=== PATIENT | male | born 1945 | race Caucasian/White ===

== ENCOUNTER 2017-10-22 11:50 | Inpatient (IN) | payer MEDICARE, BC ==
[~2017-10-22] VITALS: Ht 175.3 cm; Wt 99.5 kg
--- NOTE | ~2017-10-22 | PROC ---
[facility] [address] [place] [address] PROCEDURE REPORT Name: ANDRES CHAMPION Room: [address] IN M.R.#: [id number] Admission: 10/22/17 Attend Phys: Tomi York MD, F Discharge: 10/25/17 Date of : 47 Report #: [id number] THIS REPORT FOR: //name// For GI report, please see the Provation report in Perceptive 7 content. By: [id number] Records Staff WINSTON /GIA
[~2017-10-22 11:50] MED LIST: APAP650 PO; ASPIR-LOW81 MG PO; ATORVASTATIN CA40 MG PO; CENTRUM SILVER1 EAC2 PO; FISH OIL 1,001000 M2 PO; FOLIC ACID1 MG PO; KEFLEX500 M1 PO; NITROGLYCERIN0.4 MG SUBLING; PLAVIX 75 MG TA75 M1 PO; TERAZOSIN HCL10 MG PO; TUMS PO; WELLBUTRIN 100100 MG PO
[2017-10-22 11:53] VITALS: BP 111/52
[2017-10-22 12:26] LABS: ABSOLUTE EOSINOPHILS 0.1 thou/uL (0.0-0.7); ABSOLUTE LYMPHOCYTES 1.1 thou/uL (0.8-5.3); ABSOLUTE MONOCYTES 0.7 thou/uL (0.0-1.2); ABSOLUTE NEUTROPHILS 2.4 thou/uL (1.6-8.1); BASOPHILS 0.9 %; EOSINOPHILS 1.9 %; HEMATOCRIT 23.4 % (42.0-52.0); HEMOGLOBIN 7.2 gm/dL (14.0-18.0); MCH 23.9 pg (26.0-34.0); MCV 77.1 fL (80.0-100.0); MONOCYTES 15.1 %; MPV 7.2 fl. (7.2-11.1); NUCLEATED RBCS 0 /100WBC; PLATELET COUNT* 278 thou/uL (150-400); POLYS 56.1 %; RBC 3.03 mil/uL (4.50-6.00); RDW-CV 17.9 % (10.5-14.5); WBC 4.3 thou/uL (4.0-11.0)
[2017-10-22 12:36] LABS: ANION GAP 7 mmol/L (7-16); BUN 18 mg/dL (7-18); CALCIUM 8.7 mg/dL (8.5-10.1); CHLORIDE 101 mmol/L (98-107); CO2 28 mmol/L (21-32); GLUCOSE 121 mg/dL (70-99); POTASSIUM 4.2 mmol/L (3.5-5.1); SODIUM 136 mmol/L (136-145)
[2017-10-22 12:37] LABS: APTT 27.3 Seconds (25.0-31.3); INR 1.1; PROTIME 10.8 Seconds (9.20-11.50)
--- NOTE | 2017-10-22 12:46 | NUR ---
PT GOING TO [employer] TO FINISH SCAN, DR SERRANO APPROVED
[2017-10-22 12:47] LABS: ALBUMIN 3.5 g/dL (3.4-5.0); ALKALINE PHOSPHATASE 89 U/L (46-116); NT-PRO BRAIN NAT PEPTIDE 98 pg/mL (<300); SGOT 18 U/L (15-37); SGPT 22 U/L (30-65); TOTAL BILIRUBIN 0.3 mg/dL (<0.1-1.0); TOTAL PROTEIN 7.8 g/dL (6.4-8.2); TROPONIN-I LEVEL <0.06 ng/mL (<0.06)
--- NOTE | 2017-10-22 14:00 | EKG ---
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
[2017-10-22 14:15] VITALS: BP 123/65
[2017-10-22 14:45] VITALS: BP 124/64
--- NOTE | 2017-10-22 15:30 | NUR ---
PT ARRIVED TO UNIT VIA GURNEY AND ED NURSING STAFF. PT ABLE TO TRANSFER FROM GURNEY ONTO BED PER SELF. PT HAS CARDIZEN GTTS INFUSING PER ORDER. PT A & O X4, ABLE TO COMMUNICATE NEEDS TO STAFF. AFIB ON MONITOR. VS WNL. GREG PRESENT. NEEDED ITEMS AND CALL LIGHT WITHIN REACH. PT AGREEABLE TO CARE PLAN.
[2017-10-22 16:00] VITALS: BP 119/55
[2017-10-22 20:00] VITALS: BP 120/48
[2017-10-23] VITALS (8 sets, daily range): BP systolic 104–123; BP diastolic 44–57
--- NOTE | 2017-10-23 05:21 | NUR ---
ASSUMED CARE OF PATIENT AT 1900 THE PATIENT IN SR ON THE MONITOR O2 SAT MAINTAINED ON 2 L NC CONTINUES TO BE UP WITH STANDBY ASSIST TO THE BATHROOM THE ROUTINE REGIMEN CONTINUES TO BE EFFECTIVE FOR SX MANAGEMENT PROGRESS CONTINUES TOWARDS GOALS MAVIS MUÑIZ DC'Lucius AT 0035 SAFETY INTERVENTIONS CONTINUE BED LOWERED WHEELS LOCKED CALL LIGHT IN REACH SIDE RAILS UP REPORT TO BE GIVEN TO TERESA ROWLEY
[2017-10-23 05:47] LABS: ALBUMIN 3.3 g/dL (3.4-5.0); CALCIUM 8.8 mg/dL (8.5-10.1); POTASSIUM 4.5 mmol/L (3.5-5.1); TOTAL BILIRUBIN 0.3 mg/dL (<0.1-1.0); TOTAL PROTEIN 7.5 g/dL (6.4-8.2)
[2017-10-23 05:55] LABS: % SATURATION 4 % (20-39); IRON 14 ug/dL (50-175)
[2017-10-23 05:56] LABS: HEMOGLOBIN 6.9 gm/dL (14.0-18.0)
--- NOTE | 2017-10-23 12:39 | EKG ---
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 Rn: [facility] : 1945 Requested By: Tomi York Order Number: [id number] MD: Vincent Nagy Measurements Intervals [place] Rate: 63 P: 70 SD: 170 QRS: -7 QRSD: 102 T: 40 QT: 433 QTc: 444 Interpretive Statements Sinus rhythm Abnormal R-wave progression, early transition Compared to ECG 10/22/2017 11:51:14 Atrial fibrillation no longer present Electronically Signed On 10-23-2017 12:38:54 CDT by Vincent Nagy [email or web address] <ELECTRONICALLY SIGNED> By: Vincent Nagy MD, [facility] 10/23/17 1238 0649 0649 Vincent Nagy MD, [facility] /EPI
[2017-10-23 18:20] LABS: HEMATOCRIT 23.9 % (42.0-52.0); HEMOGLOBIN 7.8 gm/dL (14.0-18.0)
--- NOTE | 2017-10-23 18:29 | NUR ---
ASSUMED CARE OF PT AT 0720. PT CONTINUES TO BE A&O X4 CALM AND COOPERATIVE. PT HAS HAD NO C/O PAIN OR DISTRESS TODAY AND HE HAS BEEN TRACING NSR ON THE MONITOR. PT VSS ON ROOM AIR, AND PT HAS BEEN UP AD SANDRO IN HIS ROOM AND TO THE BATHROOM. PT RECIEVED 1 UNIT OF RBC TODAY FOR A LOW HGB. PT HAD NO ADVERSE REACTIONS TO THE TRANSFUSION. PT STATES HE FEELS 'REFRESHED' PT HAS HAD A GOOD APPETITE AND HAS ATE GREATER THAN 75% OF ALL MEALS TODAY. PT HAS HAD HIS , CHILDREN, AND GRANDCHILDREN AT THE BEDSIDE TODAY. PT CURRENTLY RESTING IN BED WITH HOB ELEVATED. NURSING WILL CONTINUE TO MONITOR.
[2017-10-24 04:00] VITALS: BP 115/58
[2017-10-24 04:31] LABS: HEMATOCRIT 24.7 % (42.0-52.0); HEMOGLOBIN 7.7 gm/dL (14.0-18.0); MCHC 31.2 g/dL (28.0-37.0); MPV 7.5 fl. (7.2-11.1); RBC 3.21 mil/uL (4.50-6.00); RDW-CV 17.3 % (10.5-14.5); WBC 5.8 thou/uL (4.0-11.0)
--- NOTE | 2017-10-24 05:55 | NUR ---
PATIENT PROGRESSING TOWARDS GOALS OF DISCHARGE ASSUMED CARE OF PATIENT AT 1900 THE PATIENT REMAINS SR ON THE MONITOR O2 SAT MAINTAINED ON RA CONTINUES TO BE UP WITH ASSIST OF 1 STANDBY ROUTINE REGIMEN CONTINUES TO BE EFFECTIVE FOR SX MANAGEMENT IN AM NOTED BRADYCARDIAC LOW 50'S HELD AM DOSE OF S[place] PENDING CONSULTATION WITH CARDIOLOGY SAFETY INTERVENTIONS CONTINUE BED LOWERED WHEELS LOCKED CALL LIGHT IN REACH SIDE RAILS UP REPORT TO BE GIVEN TO ONCOMING AMRIK
[2017-10-24 08:00] VITALS: BP 114/54
[2017-10-24] MEDS ORDERED: SORINE 80 MG TA80 M1 PO (09:13)
[2017-10-24 09:20] VITALS: BP 108/53
[2017-10-24 11:00] VITALS: BP 117/61
[2017-10-24 17:00] VITALS: BP 121/60
--- NOTE | 2017-10-24 18:33 | NUR ---
ASSUMED CARE OF PT AT 0730. PT CONTINUES TO BE A&O X4, VSS ON ROOM AIR. PT HAS HAD NO C/O PAIN OR DISTRESS TODAY AND CONTINUES TO TRACE NSR ON THE MONITOR. PT UP AD SANDRO IN HIS ROOM WITH A STEADY GAIT. PT STARTED BOWEL PREP THIS AFTERNOON AND HAS HAD MULTIPLE BOWEL MOVEMENTS. PT ON FULL LIQUID DIET AND WILL BE KEPT NPO STARTING AT MIDNIGHT. PT CURRENTLY RESING IN BE WITH NO APPARENT S/S OF PAIN OR DISTRESS AND FAMILY AT BEDSIDE. NURSING WILL CONTINUE TO MONITOR.
[2017-10-24 20:00] VITALS: BP 130/40
[2017-10-25] VITALS: BP 111/55
[2017-10-25 04:00] VITALS: BP 110/63
--- NOTE | 2017-10-25 04:42 | NUR ---
ASSUMED PT CARE AT 1930, PT IS A&OX4, TRACING NSR/SB ON THE MONITOR, ON RA SATTING MID TO HIGH 90'S PT IS UP AD SANDRO IN HIS ROOM AND STABLE ON MHIS FEET. PT IS NPO AT THIS TIME FOR PENDING EGD AND COLONOSCOPY. PT DRANK MOST OF BOWEL PREP LAST NIGHT WITHOUT ISSUE. PT DENIES ANY PAIN OR NEEDS AT THIS TIME. BED IN LOW POSITION, CALL LIGHT IN REACH, HOURLY ROUNDING COMPLETED FOR PT SAFETY.
[2017-10-25 04:45] LABS: ABSOLUTE EOSINOPHILS 0.2 thou/uL (0.0-0.7); ABSOLUTE LYMPHOCYTES 1.9 thou/uL (0.8-5.3); ABSOLUTE MONOCYTES 0.9 thou/uL (0.0-1.2); ABSOLUTE NEUTROPHILS 2.5 thou/uL (1.6-8.1); BASOPHILS 0.7 %; HEMATOCRIT 23.7 % (42.0-52.0); HEMOGLOBIN 7.6 gm/dL (14.0-18.0); LYMPHOCYTES 34.6 %; MCH 24.3 pg (26.0-34.0); MONOCYTES 16.1 %; MPV 7.7 fl. (7.2-11.1); NUCLEATED RBCS 0 /100WBC; PLATELET COUNT* 262 thou/uL (150-400); POLYS 45.6 %; RBC 3.11 mil/uL (4.50-6.00); RDW-CV 17.6 % (10.5-14.5); WBC 5.4 thou/uL (4.0-11.0)
[2017-10-25 04:58] LABS: ALBUMIN 3.4 g/dL (3.4-5.0); CALCIUM 8.4 mg/dL (8.5-10.1); CREATININE 0.9 mg/dL (0.6-1.3); POTASSIUM 3.9 mmol/L (3.5-5.1); TOTAL BILIRUBIN 0.4 mg/dL (<0.1-1.0)
[2017-10-25 08:05] VITALS: BP 111/65
[2017-10-25 09:16] VITALS: BP 111/65
[2017-10-25 12:31] VITALS: BP 136/63
--- NOTE | 2017-10-25 12:44 | NUR ---
CM ASSESSMENT: Pt known to this CM from previous hospital stay. A&O. Resides at home with . Independent with ADLs. No DME. No hx of HH or SNF. Scheduled to have EGD/colon today, possible dc afterwards. No needs anticipated.
--- NOTE | 2017-10-25 15:07 | CON ---
[address] [address] CONSULTATION Name: AKIRAANDRES G Room: [address] IN .Eva.#: [id number] Admission: 10/22/17 Attend Phys: Tomi York MD, F Discharge: Date of : 47 Report #: [id number] THIS REPORT FOR: //name// CC: Tomi Mejias DATE OF SERVICE: 10/24/2017 REQUESTING PHYSICIAN: Dr. Tomi York. REASON FOR CONSULT: Anemia. HISTORY OF PRESENT ILLNESS: This is a 72-year-old male with history of myocardial infarction 6 months ago, who has been on baby aspirin and anticoagulation therapy. The patient reports that since his myocardial infarction he has not been feeling well. He also reports that he has been more constipated and he strains a lot to have a bowel movement. The patient reports that his last colonoscopy was 10 years ago and he has gastroesophageal reflux disease for which he does not take any medication. He denies any hematochezia, melena or hematemesis. PAST MEDICAL HISTORY: Significant for history of hypertension, coronary artery disease status post myocardial infarction, depression, hyperlipidemia, new onset AFib. ALLERGIES: No known drug allergy. MEDICATIONS: Please refer to hospital MAR. SOCIAL HISTORY: The patient is and lives at home. He has history of tobaccoism, but no longer smokes. He denies alcohol use. FAMILY HISTORY: Negative for GI malignancy. PHYSICAL EXAMINATION: VITAL SIGNS: Reveals blood pressure of 108/53, respirations 17, pulse 65, temperature 97.5. LUNGS: Clear. CARDIOVASCULAR: Irregular, but normal rate. ABDOMEN: Soft, nontender, nondistended. Bowel sounds are positive. NEUROLOGIC: The patient is alert, oriented x 3. LABORATORY DATA: Reveal sodium of 139, potassium 4.5, BUN is 21, [place] [address] CONSULTATION Name: ANDRES CHAMPION Room: [address]#: [id number] Admission: 10/22/17 Attend Phys: Tomi York MD, F Discharge: Date of : 47 Report #: [id number] 1.0. Liver function tests all within normal limits. WBC is 5.8 with hemoglobin of 7.7 and platelet of 262. ASSESSMENT AND PLAN: The patient with new onset atrial fibrillation, who has had a cardiac event 6 months ago and has been on Plavix and aspirin. He also reports that his last colonoscopy was 10 years ago. He is severely anemic. We will go ahead and perform an upper and lower endoscopy to further investigate his anemia. The patient also complains of gastroesophageal reflux disease symptoms for which he is not on any antireflux meds. We will consider adding this after endoscopic evaluation. Meanwhile, we will continue monitoring his H and H and transfuse if he drops below 7. <ELECTRONICALLY SIGNED> By: Tanisha Celeste MD 10/25/17 1507 1301 [id number] Celeste MD /nt
--- NOTE | 2017-10-25 17:50 | H ---
[address] [address] HISTORY AND PHYSICAL Name: ANDRES CHAMPION Room: [address] IN M.Eva.#: [id number] Admission: 10/22/17 Attend Phys: Tomi York MD, F Discharge: Date of : 47 Report #: [id number] THIS REPORT FOR: //name// CC: [facility]i Watson [facility] DATE OF SERVICE: 10/22/2017 HISTORY OF PRESENT ILLNESS: The patient is a 72-year-old white male who came to the Emergency Room with a narrow complex tachycardia. The patient has no history of heart disease. He actually presented to [facility] on 04/21/2017. He complained of lightheadedness. He went to see his primary care physician, was noted to be bradycardic. He felt fatigue. He was sent over to the Emergency Room. The patient had a heart rate in the 40s. The patient had noticed some fatigue and not feeling well. He denies any significant chest pain or shortness of breath. He was noted to have an abnormal troponin. He underwent a heart catheterization done, an ejection fraction of 55%. He was found to have diffuse coronary artery disease with a high grade stenosis of the mid circumflex and right coronary artery. I then placed two drug-eluting stents in the circumflex with one drug-eluting stent in the right coronary artery. He was started on aspirin and clopidogrel. His post-MT course was uncomplicated. Recently, he has been going to the gym frequently. Recently, he noticed some burning in his chest when he exercised on the treadmill. It is not related to food. He has had no bleeding. He did note some exertional dyspnea, but no syncope or edema. He complains of fatigue. I saw him in the office last week. Recommend a nuclear stress test today. When he showed up today, he was given Lexiscan. He then went into a narrow complex tachycardia that was regular at 140 beats per minute. He was given adenosine 12 mg, and it slowed transiently, but then returned. He was sent over to the Emergency Room. When he arrived in the Emergency Room, he was actually noted to be in atrial fibrillation. He was started on IV diltiazem. He is being admitted at this time for further evaluation and treatment. PAST MEDICAL HISTORY: Otherwise is significant for the following: He had a history of hypertension, depression. MEDICATIONS: Consists of aspirin, Lipitor, Wellbutrin, Plavix, Hytrin. ALLERGIES: He has no known drug allergies. FAMILY HISTORY: Not obtained. SOCIAL HISTORY: He is . He and his live in [place], [place]. Used to smoke, does not use alcohol. [place] [address] HISTORY AND PHYSICAL Name: AKIRATERELatonya Byrne Room: [address] IN [facility]#: [id number] Admission: 10/22/17 Attend Phys: Tomi York MD, F Discharge: Date of : 47 Report #: [id number] REVIEW OF SYSTEMS: He has had no history of stroke, asthma, peptic ulcer disease, liver disease, kidney disease. He is hard of hearing. PHYSICAL EXAMINATION: GENERAL: Revealed an elderly male who appeared in no distress. VITAL SIGNS: His blood pressure 110/60, pulse was initially 130. He was afebrile. HEENT: He is anicteric. Conjunctivae pink. Mucous membranes moist. NECK: Supple. CHEST: Clear to auscultation. CARDIOVASCULAR: Irregular rhythm. ABDOMEN: Soft. EXTREMITIES: No edema. SKIN: Warm, dry. NEUROLOGIC: Nonfocal. DIAGNOSTIC DATA: His initial ECG this morning showed sinus rhythm, early repolarization. He then went into a narrow complex tachycardia after Lexiscan, 140 beats per minute, suggestive of AV node reentry tachycardia. Current ECG appears to show atrial fibrillation. His workup in the Emergency Room today, he had portable chest x-ray, showed normal heart size, clear lung ram. He had a carotid Doppler study last April that showed a carotid stenosis, although he underwent a CTA that showed plaque in the left internal carotid artery at 55%. Right carotid artery had no significant stenosis. LABORATORY DATA: Today sodium 136, BUN 18, creatinine 1. His TSH last April was 2.3. White blood cell count 4.3, hemoglobin is 7.2 today and hematocrit 23.4, MCV 77, RDW 17.9. IMPRESSION AND RECOMMENDATIONS: 1. Atrial tachycardia and atrial fibrillation. The patient has had palpitations in the past. At this time, I would start sotalol. If he fails to convert, he may require cardioversion. I would not recommend anticoagulation because of his anemia. 2. Anemia. No history of bleeding. The patient had drug-eluting stents placed 6 months ago. At this time, I would stop the Plavix, but continue aspirin. Consider GI workup. 3. Hypertension. The patient has not been on medications in the past 4. Prostatism. 5. Moderate carotid stenosis. <ELECTRONICALLY SIGNED> By: Tomi York MD, [facility] 10/25/17 1750 1252 1351Dloisd Jacky York MD, FACC /nt
--- NOTE | 2017-10-25 18:03 | NUR ---
PT DISCHARGED HOME WITH VIA PRIVATE VEHICLE. IV AND FRONT WORKER REMOVED PRIOR TO DISCHARGE. PT AND VERBALIZED UNDERSTANDING OF DISCHARGE INSTRUCTIONS THAT INCLUDED MEDICATION MANAGEMENT AND FOLLOW UP CARE. PT TOOK ALL PRESCRIPTIONS AND ALL PERSONAL BELONGINGS AT TIME OF DISCHARGE. PT VSS ON ROOM AIR, SKIN W/D/I, AND NO C/O PAIN OR DISTRESS AT TIME OF DISCHARGE.
--- NOTE | 2017-10-26 13:23 | S ---
[place] [address] SURGICAL PATH RPT PROCEDURE Name: ANDRES TITUS Room: [address] IN M.R.#: [id number] Admission: 10/22/17 Date of : 47 Discharge: 10/25/17 Report #: [id number] Path Case #: [id number] PATHOLOGY REPORT COLLECTION DATE: 10/25/2017 RECEIVED DATE: 10/25/2017 SUBMITTING PHYS: Dr. Tanisha Celeste OTHER PHYS: Dr. Tomi Mejias, [facility] SPECIMEN(S) RECEIVED: A.Duodenal bulb * * * * * * * * * * * * FINAL DIAGNOSIS: Duodenal bulb: - Mild, nonspecific active duodenitis, negative for granulomas, viral inclusions and dysplasia. (see comment) (JOHN:dayanara; 10/26/2017) COMMENT: The biopsy shows benign duodenal mucosa including prominent Franklin's glands, with the described inflammation and there is also villous flattening and an increase of lymphoplasmacytic infiltrate with mild intraepithelial lymphocytosis, findings which can be attributed to active duodenitis at this site, although they can also be seen with celiac disease, which should be considered in the clinical differential. (JOHN:dayanara; 10/26/2017) PATHOLOGIST: Jose Alicea M.D. REPORT ELECTRONICALLY SIGNED BY: Jose Alicea M.D. DATE/TIME: 10/26/2017 13:22 * * * * * * * * * * * * GROSS PATHOLOGY: Received in formalin labeled "Andres Titus, duodenal bulb biopsy for duodenitis," is a segment of phelan soft tissue measuring 0.3 cm in maximum dimension. The specimen is submitted entirely in cassette A1. (TSD; 10/25/2017) CLINICAL HISTORY: None provided INITIAL CPT CODE(S): A; [address] [place] [address] SURGICAL PATH RPT PROCEDURE Name: ANDRES TITUS Room: [address] IN [facility].#: [id number] Admission: 10/22/17 Date of : 47 Discharge: 10/25/17 Report #: [id number] Path Case #: [id number] Professional services performed by [facility] at [facility], [address] [place] [id number]. Technical services performed by [facility] at [address] [place] [address], [facility] [address], [place] [address]. [facility] [address] [place] [address] PHONE: [phone] DIRECTOR: Javi Monte M.D. * * * END OF REPORT * * *
--- NOTE | 2017-10-27 13:04 | D ---
[address] [address] DISCHARGE SUMMARY Name: ANDRES CHAMPION Room: [address] IN .R.#: [id number] Admission: 10/22/17 Attend Phys: Tomi York MD, F Discharge: 10/25/17 Date of : 47 Report #: [id number] THIS REPORT FOR: //name// CC: Tomi Watson DO [facility] DATE OF SERVICE: 10/25/2017 DISCHARGE DIAGNOSES: 1. Atrial tachycardia. 2. Iron deficiency anemia. 3. Hypertension. 4. Prostatism. 5. Coronary artery disease. CONSULTANTS: Dr. Tanisha Celeste, Gastroenterology. PROCEDURES: 1. Upper endoscopy. 2. Colonoscopy HISTORY OF PRESENT ILLNESS: The patient is a 72-year-old white male who was admitted when he was found to be in a narrow complex tachycardia. The patient presented in 04/2017 with lightheadedness and fatigue. He was noted to be bradycardic and had an elevated troponin. I performed a cardiac catheterization in 04/2017 that showed an ejection fraction of 55%. He was found to have diffuse coronary artery disease with high grade stenosis of mid circumflex and right coronary artery. I then placed two drug-eluting stents in the circumflex and one drug-eluting stent in the right coronary artery. He was started on aspirin and clopidogrel. Recently, he noticed with exertion he had some burning in his chest. It is not related to food. He has had no bleeding. He did note some exertional dyspnea, but no syncope. He complained of fatigue. I saw him in the office, recommend a nuclear stress test. When he showed up for the stress test, he was given Lexiscan. He then developed a narrow complex tachycardia at 140 beats per minute consistent with atrial tachycardia. He was given adenosine 12 mg intravenously in the treadmill lab suite and it slowed transiently, but then returned. He was referred to the Emergency Room. When he arrived in the Emergency Room, he was found to be in atrial fibrillation. He is started on IV diltiazem and admitted. PAST MEDICAL HISTORY: Significant for hypertension and depression. MEDICATIONS: On admission included aspirin, Lipitor, Wellbutrin, Plavix, [place] [address] DISCHARGE SUMMARY Name: ANDRES CHAMPION Room: [address]#: [id number] Admission: 10/22/17 Attend Phys: Tomi York MD, F Discharge: 10/25/17 Date of : 47 Report #: [id number] Hytrin. ALLERGIES: No known drug allergies. PHYSICAL EXAMINATION: VITAL SIGNS: Blood pressure 110/60, pulse was initially 130. CHEST: Clear to auscultation. CARDIAC: Irregular ABDOMEN: Soft. EXTREMITIES: Had no edema. LABORATORY DATA: Initial ECG showed a sinus rhythm with early repolarization. He then went into a narrow complex tachycardia at 140 beats per minute, suggestive of AV node reentry tachycardia. Subsequent ECG showed atrial fibrillation. Workup in the Emergency Room, portable chest x-ray, normal heart size, clear lung ram. Sodium 136, creatinine 1.0. Hemoglobin is only 7.2. HOSPITAL COURSE: The patient was admitted to a monitored bed. He was started on IV diltiazem. He was felt to have an atrial arrhythmia, and he was started on sotalol. He then converted to sinus rhythm, was taken off the IV diltiazem. He was noted to have evidence of iron deficiency anemia, and I had him seen by Dr. Celeste of the GI Service. On the day of discharge, he underwent upper endoscopy showed esophagitis, small hiatal hernia, but no bleeding. Colonoscopy showed diverticulosis, no bleeding. There were hemorrhoids. The plan is discharge the patient on iron supplements and perform a video capsule endoscopy as an outpatient. At time of discharge, the patient was ambulating and was in sinus rhythm. His nuclear stress test was performed on admission, read by Dr. Nagy, showed normal perfusion with no reversible defects. He felt that his chest pain is probably due to his anemia. At time of discharge, he had a blood pressure 130/60, his pulse is 60. He is afebrile. He was discharged on aspirin 81 mg a day, Plavix 75 mg a day, Lipitor, Wellbutrin, Hytrin and sotalol 80 mg twice day. He was discharged to return to the care of Dr. Watson for routine medical care. He continues to see Dr. Celeste in the GI Clinic for his iron deficiency anemia. At time of discharge, his lab work included potassium 3.9, glucose 89. Liver function studies were normal. His cholesterol was not obtained. TSH was 2.3 last April. His percent saturation of iron was only 4%, ferritin was 12. At time of discharge, he had a hemoglobin 7.6, hematocrit 23.7. The results of the hospitalization were discussed with the patient. It was felt that he had developed an iron deficiency anemia starting Plavix. I will consider discontinuing aspirin at this time and continue only Plavix. He is felt to have a good prognosis from cardiac standpoint. The cause of iron deficiency anemia was still unclear. He is scheduled to see my nurse practitioner in 1 week, and I plan to see him in Cardiology Clinic in 8 weeks. I would continue sotalol indefinitely to prevent recurrent atrial arrhythmias. I did recommend he gradually start an exercise program and continue the iron [facility] [address] [place] [address] DISCHARGE SUMMARY Name: ANDRES CHAMPION Room: [address] IN [facility].#: [id number] Admission: 10/22/17 Attend Phys: Tomi York MD, F Discharge: 10/25/17 Date of : 47 Report #: [id number] supplements. He will need followup hemoglobin and hematocrit after diagnosing his anemia. <ELECTRONICALLY SIGNED> By: Tomi York MD, FACC 10/27/17 1304 0836 [id number] Jacky York MD, FACC /nt
== END 2017-10-25 17:50 | disposition home or self-care (01) | DRG 384 ==
LOC: M.ERS 11:50 → M.2W 13:00 → M.TBA-ER 13:00 → M.2W 14:06
PROVIDERS: Internal Medicine Cardiovascular Disease; Internal Medicine Gastroenterology; Personal Emergency Response Attendant; ADMIT Internal Medicine Cardiovascular Disease
PROC: 30233N1 Transfusion of Nonautologous Red Blood Cells into Peripheral Vein, Percutaneous Approach (ICD-10-PCS; principal; 2017-10-23)
PROC: 0DB98ZX Excision of Duodenum, Via Natural or Artificial Opening Endoscopic, Diagnostic (ICD-10-PCS; 2017-10-25)
PROC: 0DJD8ZZ Inspection of Lower Intestinal Tract, Via Natural or Artificial Opening Endoscopic (ICD-10-PCS; 2017-10-25)
DX: K26.9 Duodenal ulcer, unspecified as acute or chronic, without hemorrhage or perforation (principal); D62 Acute posthemorrhagic anemia; I48.91 Unspecified atrial fibrillation; K57.30 Diverticulosis of large intestine without perforation or abscess without bleeding; K44.9 Diaphragmatic hernia without obstruction or gangrene; I10 Essential (primary) hypertension; F32.9 Major depressive disorder, single episode, unspecified; I25.10 Atherosclerotic heart disease of native coronary artery without angina pectoris; E78.5 Hyperlipidemia, unspecified; D50.9 Iron deficiency anemia, unspecified; N40.0 Benign prostatic hyperplasia without lower urinary tract symptoms; I65.29 Occlusion and stenosis of unspecified carotid artery; K21.0 Gastro-esophageal reflux disease with esophagitis; K64.8 Other hemorrhoids; I25.2 Old myocardial infarction

== ENCOUNTER → 2018-06-14 | Outpatient (CLI) | payer MEDICARE, BC ==
[~2018-06-14] MED LIST changes: +SORINE 80 MG TA80 M1 PO
--- NOTE | 2018-06-14 11:49 | 2DMMODE ---
[place] [address] 2 D/M-MODE ECHOCARDIOGRAM Name: ANDRES CHAMPION Room: [facility]#: [id number] Admission: 06/14/18 Attend Phys: Nelli Pemberton, Discharge: Date of : 47 Date of Service: 06/14/18 1149 Report #: [id number] THIS REPORT FOR: //name// APPROVED REPORT Study performed: 06/14/2018 08:51:41 EXAM: Comprehensive 2D, Doppler, and color-flow Echocardiogram Patient Location: Out-Patient Status: routine BSA: 2.21 HR: 61 bpm BP: 142/88 mmHg Other Information Study Quality: Good Indications Aortic Valve Disease Atrial Fibrillation 2D Dimensions IVSd: 11.78 (7-11mm) LVOT Diam: 20.36 (18-24mm) LVDd: 50.18 mm PWd: 11.02 (7-11mm) Ascending Ao: 30.52 (22-36mm) LVDs: 29.35 (25-40mm) Aortic Root: 30.58 mm Volumes Left Atrial Volume (Systole) LA ESV Index: 25.30 mL/m2 Aortic Valve AoV Peak Lei.: 2.14 m/s AO Peak Gr.: 18.30 mmHg LVOT Max P.41 mmHg AO Mean Gr.: 11.09 mmHg LVOT Mean P.23 mmHg LVOT Max V: 0.78 m/s AO V2 VTI: 51.31 cm LVOT Mean V: 0.51 m/s AIDA (VTI): 1.44 cm2 LVOT V1 VTI: 22.64 cm Mitral Valve E/A Ratio: 0.86 MV Decel. Time: 304.58 ms MV E Max Lei.: 0.58 m/[place] [address] 2 D/M-MODE ECHOCARDIOGRAM Name: ANDRES CHAMPION Room: [facility]#: [id number] Admission: 06/14/18 Attend Phys: Nelli Pemberton, Discharge: Date of : 47 Date of Service: 06/14/18 1149 Report #: [id number] MV PHT: 88.33 ms MVA (PHT): 2.49 cm2 TDI E/Lateral E': 7.25 E/Medial E': 11.60 Medial E' Lei.: 0.05 m/s Lateral E' Lei.: 0.08 m/s Pulmonary Valve PV Peak Lei.: 1.14 m/s PV Peak Gr.: 5.17 mmHg Left Ventricle The left ventricle is normal size. There is normal LV segmental wall motion. Regional wall motion is not well visualized. Mild concentric left ventricular hypertrophy. Left ventricular systolic function is normal. The left ventricular ejection fraction is within the normal range. LVEF is 50-55%. Grade I - abnormal relaxation pattern. Right Ventricle The right ventricle is normal size. The right ventricular systolic function is normal. Atria Left atrium is moderately dilated. The right atrium size is normal. Aortic Valve Aortic valve leaflets are moderately thickened. Mild aortic regurgitation. Mild aortic stenosis.mean gradient <15mmHg Mitral Valve The mitral valve is normal in structure. Trace mitral regurgitation. No evidence of mitral valve stenosis. Tricuspid Valve The tricuspid valve is normal in structure. There is no tricuspid valve regurgitation noted. Pulmonic Valve The pulmonary valve is normal in structure. There is no pulmonic valvular regurgitation. Great Vessels The aortic root is normal in size. IVC is normal in size and collapses >50% [place] [address] 2 D/M-MODE ECHOCARDIOGRAM Name: ANDRES CHAMPION Room: [facility]#: [id number] Admission: 06/14/18 Attend Phys: Nelli Pemberton, Discharge: Date of : 47 Date of Service: 06/14/18 1149 Report #: [id number] Pericardium There is no pericardial effusion. <Conclusion> LVEF is 50-55%. There is normal LV segmental wall motion. Regional wall motion is not well visualized. Mild concentric left ventricular hypertrophy. Aortic valve leaflets are moderately thickened. Mild aortic stenosis.mean gradient <15mmHg Mild aortic regurgitation. No evidence of mitral valve stenosis. Trace mitral regurgitation. Left atrium is moderately dilated. <ELECTRONICALLY SIGNED> By: Vincent Nagy MD, FACC 06/14/18 1149 1149 1149 Vincent Nagy MD, FACC /INF
== END ==
LOC: M.CRD 08:21
DX: I35.1 Nonrheumatic aortic (valve) insufficiency (principal); I35.0 Nonrheumatic aortic (valve) stenosis; I51.7 Cardiomegaly; I35.8 Other nonrheumatic aortic valve disorders; R06.09 Other forms of dyspnea

== ENCOUNTER → 2019-04-27 | Outpatient (CLI) | payer MEDICARE, BC ==
--- NOTE | 2019-04-28 09:44 | TST ---
[place] [address] TREADMILL STRESS TEST Name: ANDRES CHAMPION LUIS Room: [facility]#: [id number] Admission: 04/27/19 Attend Phys: Samantha. MARKO Cook Discharge: Date of : 47 Date of Service: 04/27/19 1625 Report #: [id number] THIS REPORT FOR: //name// CC: Tomi York MD [facility] Fidelina Fong INDICATION: Dyspnea. CARDIAC HISTORY: Previous myocardial infarction with percutaneous coronary intervention. CARDIAC RISK FACTORS: Age greater than 45, hyperlipidemia, hypertension, family history of coronary artery disease and type 2 diabetes mellitus. PROCEDURE: Standard Lion protocol exercise stress test. DESCRIPTION OF PROCEDURE: After informed consent was obtained, the patient was brought to the Cardiac Stress Lab. The patient exercised per standard Lion protocol for a total of 8 minutes. The resting blood pressure was 113/72 mmHg, with a resting pulse rate at 72 beats per minute. At peak exercise, the blood pressure was 184/65 mmHg, with a peak stress heart rate of 133 beats per minute. In recovery, the blood pressure was 143/71 mmHg with a recovery heart rate of 82 beats per minute. The patient achieved 90.4% of the maximum predicted heart rate. The patient achieved an exercise equivalent of 10.15 METS. Exercise was discontinued due to fatigue. The baseline 12-lead EKG shows sinus rhythm without significant ST or T-wave abnormality. EKGs obtained during and post-exercise show sinus rhythm and sinus tachycardia with [address]-segment depression noted in the inferolateral leads that persisted 5 minutes into recovery. IMPRESSION: 1. There is positive EKG evidence of stress-induced ischemia with downsloping ST-segment depression noted in the inferolateral leads. 2. The patient had minimal symptoms of exertional fatigue, possibly representing anginal equivalent. CONCLUSION: This standard Lion protocol stress test was positive for evidence of stress-induced ischemia. This would be considered a [id number] risk study. <ELECTRONICALLY SIGNED> By: Wyatt Jesus MD, FACC 04/28/19 0944 1625 2156 Wyatt Jesus MD, FACC /nt
== END ==
LOC: M.CRD 14:34
DX: I25.10 Atherosclerotic heart disease of native coronary artery without angina pectoris (principal); R06.02 Shortness of breath; I10 Essential (primary) hypertension; E78.5 Hyperlipidemia, unspecified; F32.9 Major depressive disorder, single episode, unspecified; Z95.5 Presence of coronary angioplasty implant and graft; Z87.891 Personal history of nicotine dependence; Z79.899 Other long term (current) drug therapy

== ENCOUNTER → 2019-05-02 | Outpatient (CLI) | payer MEDICARE, BC ==
[~2019-05-02] MED LIST changes: +METFORMIN HCL500 MG PO
--- NOTE | 2019-05-03 16:30 | SLEEP ---
[address] [address] SLEEP STUDY REPORT Name: ANDRES CHAMPION Room: [facility]#: [id number] Admission: 05/02/19 Attend Phys: Samantha. MARKO Bolden Discharge: Date of : 47 Report #: [id number] THIS REPORT FOR: //name// CC: Fidelina Fong This study has been reviewed in its entirety by a board certified sleep specialist DATE OF SERVICE: 05/02/2019 SLEEP STUDY Referring physician: Merline Fong MD The patient is a 74-year-old who weighs 230 pounds with a BMI of 34. The patient underwent a split night study performed at [facility]. During the night study, the patient spent 401 minutes in bed and slept for 258 minutes with a sleep efficiency of 64%. Sleep latency was 40 minutes, which is prolonged with a REM latency of 116 minutes. Sleep architecture showed increased stage 1 sleep, normal stage 2 sleep, normal slow wave and increased REM sleep, which was 33% of the total sleep time. During the initial diagnostic portion of the study, the patient slept for 258 minutes. During that time, the patient had 97 obstructive apneas, no mixed apneas and 52 central apneas. The patient also had 35 hypopneas. The patient's apnea hypopnea index was 42.7 per hour with a REM index of 13.9 per hour and a supine index of 113 per hour. EKG monitoring revealed an average heart rate of 57 beats per minute. No sustained arrhythmias observed. PLMS were seen at an index of 34 per hour and 3 per hour caused EEG arousals. Nocturnal oximetry study. During the diagnostic portion revealed an average oxygen saturation of 93% with lowest of 70%. Twenty eight minutes were spent in oxygen saturation less than 89%. The patient met the criteria for CPAP initiation. It was started at 5 cm water and titrated up to 14 cm water. At the final pressure, the patient slept for 22 minutes. The entire time was spent in lateral REM sleep. The patient's AHI was reduced to 0 per hour and oxygen saturation remained above 90%. IMPRESSION: [place] [address] SLEEP STUDY REPORT Name: ANDRES CHAMPION Room: [facility]#: [id number] Admission: 05/02/19 Attend Phys: Samantha. MARKO Bolden Discharge: Date of : 47 Report #: [id number] 1. Severe sleep apnea-hypopnea syndrome at an AHI of 42.7 per hour with a supine AHI of 113 per hour. 2. Nocturnal hypoxia secondary to obstructive sleep apnea, but resolved with CPAP. 3. Moderate periodic limb movements. RECOMMENDATIONS: 1. CPAP at 14 cm water completely eliminated the patient's sleep apnea and should be used on a nightly basis. 2. Follow up in 4-6 weeks to assess compliance with CPAP and to document clinical improvement. 3. Weight loss is strongly advised. 4. 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 5. Avoid supine sleep. 6. Cautioned regarding driving until symptoms of sleep apnea resolve with the use of CPAP. 7. The patient should also be further evaluated for symptoms of restless legs during the day. <ELECTRONICALLY SIGNED> By: Cory Das MD 05/03/19 1630 1436 [id number] Rosalina Das MD /nt
== END ==
LOC: M.SLEEPLAB 20:59
DX: G47.33 Obstructive sleep apnea (adult) (pediatric) (principal); G47.34 Idiopathic sleep related nonobstructive alveolar hypoventilation; G47.61 Periodic limb movement disorder

== ENCOUNTER 2019-05-05 09:16 | Observation (INO) | payer MEDICARE, BC ==
[~2019-05-05] VITALS: Ht 175.3 cm; Wt 99.3 kg
[2019-05-05] VITALS (11 sets, daily range): BP systolic 106–135; BP diastolic 54–73
[~2019-05-05 09:16] MED LIST changes: -METFORMIN HCL500 MG PO
[2019-05-05 10:24] LABS: HEMATOCRIT 41.3 % (42.0-52.0); MCHC 33.9 g/dL (28.0-37.0); MCV 91.2 fL (80.0-100.0); MPV 8.1 fl. (7.2-11.1); RBC 4.53 mil/uL (4.50-6.00); WBC 4.7 thou/uL (4.0-11.0)
[2019-05-05 10:32] LABS: ANION GAP 8 mmol/L (7-16); BUN 17 mg/dL (7-18); CALCIUM 9.2 mg/dL (8.5-10.1); CHLORIDE 102 mmol/L (98-107); CO2 29 mmol/L (21-32); CREATININE 0.9 mg/dL (0.6-1.3); GLUCOSE 112 mg/dL (70-99); POTASSIUM 4.2 mmol/L (3.5-5.1); SODIUM 139 mmol/L (136-145)
[2019-05-05 10:33] LABS: APTT 27.8 Seconds (25.0-31.3); PROTIME 10.5 Seconds (9.20-11.50)
[2019-05-05 10:36] LABS: ALBUMIN 3.7 g/dL (3.4-5.0); ALKALINE PHOSPHATASE 83 U/L (46-116); CHOLESTEROL 96 mg/dL (<200); HDL CHOLESTEROL 35 mg/dL (>40); LDL CHOLESTEROL 43 mg/dL (<100); SGOT 22 U/L (15-37); SGPT 31 U/L (30-65); TC:HDL 2.7 Ratio (Not establshd); TOTAL BILIRUBIN 0.5 mg/dL (<0.1-1.0); TOTAL PROTEIN 8.3 g/dL (6.4-8.2); TRIGLYCERIDE 90 mg/dL (<150); VLDL 18 mg/dL (<40)
[2019-05-05 10:40] LABS: SERUM ASSESSMENT Clear
--- NOTE | 2019-05-05 14:17 | EKG ---
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
[2019-05-05 14:58] LABS: CK-MB MASS 1.9 ng/mL (<0.5-3.6); TROPONIN-I LEVEL 0.19 ng/mL (<0.06)
--- NOTE | 2019-05-05 16:17 | H ---
[address] [address] HISTORY AND PHYSICAL Name: ANDRES CHAMPION Room: [address] Baudilio Ruiz#: [id number] Admission: 05/05/19 Attend Phys: Tomi York MD, F Discharge: Date of : 47 Report #: [id number] THIS REPORT FOR: //name// CC: Tomi Watson DO DATE OF SERVICE: 05/05/2019 HISTORY OF PRESENT ILLNESS: The patient is a 74-year-old white male who was brought to the outpatient department to undergo repeat cardiac catheterization. The patient has a strong family history of coronary artery disease. He also has a long history of hypertension. The patient has a long history of heart murmur and has not smoked for years. He actually presented back in 04/2017 complained of lightheadedness and fatigue. He came to the Emergency Room at [facility] and was admitted. He was noted to be bradycardic. He had an abnormal troponin. He was seen by my partner, Dr. Jesus and underwent a cardiac catheterization. The procedure was performed from the right radial artery. Results showed no significant disease in the LAD. The circumflex had a 90% mid stenosis. The right coronary had 90% mid stenosis. There was normal left ventricular chamber size and wall motion. He was given heparin. Because of tortuosity of the aorta, there was difficulty torquing the catheter into the left main artery. A sheath was then placed in the right femoral artery and stents were placed through the right femoral artery. The patient was loaded with Plavix and discharged. The patient was actually admitted in September of 2017. He complained of fatigue. It was recommended that he undergo a nuclear stress test. However when he showed up for the stress test, he was found to be in atrial tachycardia. When he was admitted to the hospital, he was found to be in atrial fibrillation. He was started on IV diltiazem and converted to sinus rhythm. He was noted to be anemic and he underwent upper endoscopy showed a small hiatal hernia. Colonoscopy showed diverticulosis, but no bleeding. Nuclear stress test at that time showed no ischemia. He was started on sotalol. The patient was continued on Plavix, but the aspirin was discontinued. He because of the fatigue underwent a sleep study. He was found to have evidence of sleep apnea and was prescribed CPAP recently. The patient denies any significant chest pain, shortness of breath, palpitations, syncope. He has been fatigued. He has had no bleeding. Because of his history of coronary artery disease, he underwent a treadmill without imaging on 04/27. With exercise, he denies chest pain. However, he did develop ischemic downsloping ST segment depression consistent with ischemia. Because of his abnormal exercise stress test, I recommended he undergo repeat cardiac catheterization. PAST MEDICAL HISTORY: Otherwise significant for previous hemorrhoidectomy, hernia repair, hypertension, hyperlipidemia. He has evidence of mild aortic stenosis. 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 MEDICATIONS: Consists of Lipitor, Plavix, omeprazole, sotalol, he takes 40 mg twice a day, Hytrin. ALLERGIES: He has no known drug allergies. FAMILY HISTORY: All of his brothers had heart attack. SOCIAL HISTORY: He is . He and his live in [place], [place]. 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 No alcohol abuse. REVIEW OF SYSTEMS: There is no history of stroke, asthma, liver disease, kidney disease, cancer, psychiatric illness, chronic skin condition. PHYSICAL EXAMINATION: GENERAL: Elderly male, appeared in no distress. VITAL SIGNS: He had a blood pressure of 130/70, pulse is 60. HEENT: He was anicteric. Conjunctivae pink. Mucous membranes moist. NECK: Veins not distended. CHEST: Clear to auscultation. CARDIOVASCULAR: Regular rate and rhythm, grade 2 systolic ejection murmur. ABDOMEN: Soft. EXTREMITIES: Had no edema. SKIN: Warm and dry. NEUROLOGIC: Nonfocal. LABORATORY DATA: In September included BUN of 14, creatinine 0.8. IMPRESSION AND RECOMMENDATIONS: 1. Hypertension. The patient is on a beta ana and alpha ana. 2. Coronary artery disease. No recent angina. However, the patient noted to have abnormal treadmill test. Recommend repeat cardiac catheterization. 3. Mild aortic stenosis. 4. Hyperlipidemia. The patient is on a statin drug. 5. History of anemia. Previous GI workup. 6. Moderate carotid stenosis. The patient followed by a vascular surgeon. 7. Sleep apnea. <ELECTRONICALLY SIGNED> By: Tomi York MD, [facility] 05/05/19 1617 1024 [id number] York MD, FACC /nt
--- NOTE | 2019-05-05 17:16 | CARD ---
[address] [address] CARDIAC CATH REPORT Name: ANDRES CHAMPION Room: [address] Baudilio Ruiz#: [id number] Admission: 05/05/19 Attend Phys: Tomi York MD, F Discharge: Date of : 47 Report #: [id number] THIS REPORT FOR: //name// APPROVED REPORT Study performed: 05/05/2019 09:52:37 Patient Details Patient Status: Out-Patient Room #: The patient is a 74 year-old male Event Personnel Tomi York Behavior Management Specialist, Luz Ch RN Firewall Administrator, Millie Garcia RTR Scrub, Mainor Swenson MORGUE LIBRARIAN Scrub, Lore Ponce RTR Monitor Procedures Performed Art Access - R femoral artery, LEFT HEART CATH & CORONARIES , DRUG ELUTING STENT 2ND OM ARTERY Indication Positive stress test Risk Factors Hypercholesterolemia Previous Procedures/Diagnoses Previous PCI Admission/Lab Medications/Medications given during procedure Heparin Unfract., Oxygen Nasal cannula 2 l per min, Midazolam (Versed) IV 2 mg, Lidocaine Subcut 15 ml, Heparin IV 10,000 units total, Plavix PO 75 mg Procedure Narrative The patient was brought electively to the Cardiac Catheterization Laboratory and was prepped and draped in a sterile manner. The right femoral was infiltrated with 1% Lidocaine subcutaneous anesthesia. A 6fr Ultimum Sheath sheath was inserted into the right femoral artery. Coronary angiography was performed using coronary diagnostic catheters. The right coronary system was accessed and visualized with a 6F JR4 catheter. The left coronary system was accessed and visualized with a 6F JL4 catheter. The left ventricle was accessed and visualized with a 6F Pigtail catheter. Left ventricular/Aortic Valve gradient assessed via catheter pullback[place] [address] CARDIAC CATH REPORT Name: ANDRES CHAMPION LUIS Room: [address]#: [id number] Admission: 05/05/19 Attend Phys: Tomi York MD, F Discharge: Date of : 47 Report #: [id number] was performed in SONI projection. Closure device was deployed with a 6 Fr Angioseal STS 6Fr. The patient tolerated the procedure well and there were no complications associated with the procedure. There was no hematoma. The aortic vavle was crossed by advancing a glide wire through a JR4 catheter. The catheter was exchanged over a long wire for a pigtail catheter. Intraoperative Conscious Sedation Sedation start time: 11:12 Case end Time: 12;15 Versed 2 mg Fluoro Time: 9.4 minutes Dose: DAP [id number] cGycm2 1755 mGy Contrast Type and Amount: Omnipaque 190 ml Coronary Angiography The patient's coronary anatomy is co- dominant. Diagnostic Cath Left Main 0% stenosis LAD 0% stenosis Circumflex mid stent with 0% stenosis OM1 small vessel with 80% ostial stenosis OM2 medium vessel with proximal 90% stenosis Right Coronary 30% proximal stenosis. mid stent with 0% stenosis Left Ventriculography The left ventricle is normal in size with normal contractility. The left ventricular ejection fraction is estimated to be 60-65%. Left ventricular wall motion abnormalities are not present. There is no mitral insufficiency. Hemodynamics The aortic pressure is 125/47 mmHg with a mean of 80 mmHg. The left ventricular pressure is 115/10 mmHg with a mean of mmHg. The left ventricular end diastolic pressure is 12 mmHg. Pullback from the left ventricle to the aorta revealed a 15 mm gradient across the aortic valve. PCI Technique Lesion Anticoagulation was achieved with Heparin. Patient was preloaded with Plavix. Percutaneous coronary intervention was performed on the second obtuse marginal branch segment. The lesion stenosis prior to intervention was 90% with ADOLFO 3 flow. A 6F XB 4.0 [place] [address] CARDIAC CATH REPORT Name: ANDRES CHAMPION LUIS [id number] Admission: 05/05/19 Attend Phys: Tomi York MD, F Discharge: Date of : 47 Report #: [id number] used to engage the LCA ostium. A BMW 190cm Interventional Guidewire was used to cross the lesion. BALLOON DILATION A Balloon catheter Mini Trek RX 2.0 X 8 was inserted and inflated up to 16.00atm for 23seconds. Repeat angiography revealed the following post-dilatation results: 40% stenosis. Additional Inflation: 18.00atm for 93seconds. STENT DEPLOYMENT A drug-eluting stent 2.25 X 15 BIOTRONIK ORSIRO was inserted and inflated up to 8atm for 25seconds. Repeat angiography revealed the following post-stent deployment results: 0% stenosis. Additional Inflation: 9atm for 14seconds. Unable to place 12 mm x 2.0 mm onynx stent which could not be advanced from the circumflex where there was a stent covering the takeoff of the marginal branch. Able to place orsiro stent after further ptca of the ostium of the 2nd marginal branch which further dilated the cell of a stent in the circumflex which covered the takeoff of the marginal branch. Final angiography reveals 0 % stenosis with ADOLFO 3 flow. Conclusion 1. no restenosis of stents noted in the circumflex and rca. 2. 90% proximal stenosis of a medium sized 2nd marginal branch of the circumflex 3. LVEF 60-65% 4. Mild 5. Successful placement of a drug eluting stent in the proximal second marginal branch Recommendations Cardiac Rehabilitation Referral Aggressive Medical Therapy Medications Administered Clopidogrel <ELECTRONICALLY SIGNED> By: Tomi York MD, FACC 05/05/191715 15 15Tomi York MD, FACC /INF
[2019-05-06] VITALS: BP 128/66
[2019-05-06 04:00] VITALS: BP 133/94
[2019-05-06 05:07] LABS: HEMATOCRIT 39.3 % (42.0-52.0); HEMOGLOBIN 13.2 gm/dL (14.0-18.0); MCH 30.6 pg (26.0-34.0); MCHC 33.6 g/dL (28.0-37.0); MCV 91.2 fL (80.0-100.0); MPV 7.7 fl. (7.2-11.1); RBC 4.31 mil/uL (4.50-6.00); RDW-CV 13.9 % (10.5-14.5); WBC 4.9 thou/uL (4.0-11.0)
[2019-05-06 05:40] LABS: ALBUMIN 3.4 g/dL (3.4-5.0); CALCIUM 8.8 mg/dL (8.5-10.1); CK-MB MASS 1.3 ng/mL (<0.5-3.6); CREATININE 0.9 mg/dL (0.6-1.3); TOTAL BILIRUBIN 0.5 mg/dL (<0.1-1.0); TOTAL PROTEIN 7.6 g/dL (6.4-8.2); TROPONIN-I LEVEL 0.14 ng/mL (<0.06)
[2019-05-06 07:30] VITALS: BP 122/53
[2019-05-06 10:28] VITALS: BP 126/64
[2019-05-06] MEDS ORDERED: METFORMIN HCL500 MG PO (10:35)
[2019-05-06] MEDS ORDERED: NITROGLYCERIN0.4 MG SUBLING (10:36)
--- NOTE | 2019-05-06 12:45 | EKG ---
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 05/06/19 1245 1438 143 Wyatt Jesus MD, FACC /EPI
--- NOTE | 2019-05-09 12:37 | D ---
[address] [address] DISCHARGE SUMMARY Name: ANDRES CHAMPION Room: [address] Baudilio Ruiz#: [id number] Admission: 05/05/19 Attend Phys: Tomi York MD, F Discharge: 05/06/19 Date of : 47 Report #: [id number] THIS REPORT FOR: //name// CC: Tomi Watson DO DATE OF SERVICE: 05/06/2019 DISCHARGE DIAGNOSES: 1. Coronary artery disease. 2. Hypertension. 3. Hyperlipidemia. 4. Carotid stenosis. 5. Sleep apnea. CONSULTANTS: None. PROCEDURES: Left heart catheterization with placement of a single drug-eluting stent in the marginal branch of the circumflex artery via the femoral approach. HISTORY OF PRESENT ILLNESS: The patient is a 74-year-old white male, who was brought to the outpatient department to undergo repeat cardiac catheterization. The patient presented 2 years ago complaining of lightheadedness, fatigue. He came to the Emergency Room at [facility] and was admitted. He was noted to be bradycardic. He had an abnormal troponin. He underwent a cardiac catheterization from the right radial artery. Results showed a 90% stenosis of the mid circumflex artery and a 90% stenosis of the mid right coronary artery. Because of the tortuosity of the aorta, stenting was performed from the right femoral artery. He then had stents placed in the right coronary artery and circumflex. He was loaded with Plavix and discharged. He presented in 09/2017 with fatigue. He was found to be in an atrial tachycardia and paroxysmal atrial fibrillation. He converted to sinus rhythm. He was noted to be anemic and underwent endoscopy that showed a small hiatal hernia, but no bleeding. Colonoscopy showed diverticulosis. Nuclear stress test showed no ischemia. He was started on sotalol. I actually saw the patient in the spring when he was doing well. Because of his history of coronary artery disease, I recommended that he undergo a treadmill without imaging. This was performed in April. With exercise, he denied chest pain, but developed ischemic ST segment changes. Because of his abnormal stress test and history of coronary artery disease, I recommended that he undergo repeat cardiac catheterization. PAST MEDICAL HISTORY: Significant for hemorrhoidectomy, hernia repair, hypertension, hyperlipidemia, mild aortic stenosis. He has a history of carotid stenosis and is followed by vascular surgery. He [place] [address] DISCHARGE SUMMARY Name: ANDRES CHAMPINO Room: [address] Baudilio Ruiz#: [id number] Admission: 05/05/19 Attend Phys: Tomi York MD, F Discharge: 05/06/19 Date of : 47 Report #: [id number] was abnormal. MEDICATIONS: Include Lipitor, Plavix, omeprazole, sotalol, Hytrin. ALLERGIES: He had no known drug allergies. PHYSICAL EXAMINATION: GENERAL: Elderly male. VITAL SIGNS: Blood pressure 130/70, pulse was 60. CHEST: Clear to auscultation. CARDIAC: Regular rate and rhythm. ABDOMEN: Soft. EXTREMITIES: Had no edema. SKIN: Warm and dry. NEUROLOGIC: Nonfocal. LABORATORY WORK: Sodium 138, creatinine 0.9, glucose 92. Liver function studies were normal. Cholesterol 96, triglyceride 90, HDL 35, LDL 43. His white blood cell count was 4.9, hemoglobin 14, platelet count 223,000. HOSPITAL COURSE: The patient was brought to the outpatient department. Since previous stenting required a femoral approach because the tortuous subclavian, I recommended a femoral approach. This was performed on the first hospital day. The patient tolerated the procedure well. Results showed ejection fraction 60%. There was minimal gradient across the aortic valve, consistent with only mild aortic stenosis. There was no restenosis stents in the mid circumflex or right coronary artery. He was noted to have a medium-sized second marginal branch that arose within the stent in the mid circumflex, but had an ostial 90% stenosis. He was given heparin and then placed a single drug-eluting stent in the proximal second marginal branch. He tolerated the procedure well. He had no further chest pain, arrhythmias or heart failure. An Angio-Seal was placed in the right femoral artery. The following day, he had no significant hematoma. He was ambulating without any complaints. The patient was felt to be stable for discharge. At the time of discharge, he had a blood pressure of 130/60, pulse was 60, and he was afebrile. Followup lab work after the procedure the following day showed a creatinine of 0.9. His troponin was 0.14. There were no significant ECG changes. Followup hemoglobin was 13.2. The patient was discharged on his home medications that included Lipitor, Plavix 75 mg a day. He was to start aspirin 81 mg a day. He is on sotalol 40 mg twice a day [place] [address] DISCHARGE SUMMARY Name: ANDRES CHAMPION Room: [address] Baudilio LoweHilda#: [id number] Admission: 05/05/19 Attend Phys: Tomi York MD, F Discharge: 05/06/19 Date of : 47 Report #: [id number] He was discharged to return to the care of Dr. Watson for routine medical care. He is scheduled to be prescribed CPAP for his sleep apnea. I did recommend that he start an exercise program and maintain a low-fat diet. Of note, he was not anemic at this time despite the fact that a year ago, he had been significantly anemic. He is scheduled to return to see me in the Cardiology Clinic in 6 weeks for followup. He is felt to have a good prognosis from cardiac standpoint. Results of the hospitalization were discussed with the patient. He is felt to have no significant restenosis of previous stents, but had a significant stenosis in the marginal branch that was stented. He was felt to have no restrictions from a cardiac standpoint at this time. <ELECTRONICALLY SIGNED> By: Tomi York MD, FACC 05/09/19 1237 1015 [id number] York MD, FACC /nt
== END 2019-05-06 10:40 | disposition home or self-care (01) ==
LOC: M.CL 09:16 → M.2W 12:42 → M.TBA-CV 12:42 → M.2W 13:24
PROVIDERS: ADMIT Internal Medicine Cardiovascular Disease
DX: I25.110 Atherosclerotic heart disease of native coronary artery with unstable angina pectoris (principal); I10 Essential (primary) hypertension; E78.5 Hyperlipidemia, unspecified; I65.29 Occlusion and stenosis of unspecified carotid artery; G47.39 Other sleep apnea; Z79.02 Long term (current) use of antithrombotics/antiplatelets; Z79.899 Other long term (current) drug therapy

== ENCOUNTER 2019-11-01 08:55 | Inpatient (IN) | payer MEDICARE, BC ==
[~2019-11-01] VITALS: Ht 175.3 cm; Wt 104.3 kg
--- NOTE | ~2019-11-01 | CON ---
[address] [address] CONSULTATION Name: ANDRES CHAMPION Room: [address] IN M.R.#: [id number] Admission: 11/01/19 Attend Phys: Lucius Erickson Discharge: Date of : 47 Report #: [id number] THIS REPORT FOR: //name// cc: Fidelina Watson Maggie M. DO ~ THIS REPORT FOR: //name// CC: Fidelina Llamas DATE OF SERVICE: 11/02/2019 HISTORY OF PRESENT ILLNESS: This is a pleasant 74-year-old male with past medical history significant for hypertension, hyperlipidemia, coronary artery disease, diabetes, who was previously seen by us in the clinic. The patient had evaluation for iron deficiency anemia. 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 The patient was due to undergo balloon enteroscopy at [facility] on 11/02/2019; however, he presented to [place] [facility] for low hemoglobin. The patient does report weakness, black tarry stools, dizziness, shortness of breath and dyspnea on exertion. PAST MEDICAL HISTORY: Hypertension, hyperlipidemia, coronary artery disease, diabetes. PAST SURGICAL HISTORY: Hemorrhoidectomy, hernia repair, cervical surgery, cardiac stents. SOCIAL HISTORY: The patient quit smoking, denies alcohol or recreational drug use. FAMILY HISTORY: No history of colon cancer or Goncalves related neoplasia. REVIEW OF SYSTEMS: Comprehensive 10-point review of systems is negative except for what was mentioned in the HPI. PHYSICAL EXAMINATION: VITAL SIGNS: Temperature 36.5, pulse rate 57, respirations 20, blood pressure 139/53, pulse ox 97% on room air. GENERAL: The patient is alert, awake, oriented x 3. HEENT: Pupils are equal, round, reactive to light and accommodation. Mucous membranes are moist. There is no congestion. LUNGS: Clear to auscultation bilaterally. CARDIOVASCULAR: Rate and rhythm regular, S1, S2 present. ABDOMEN: Soft. There is no distention, guarding or rigidity. EXTREMITIES: Warm, well perfused, [place] [address] CONSULTATION Name: ANDRES CHAMPION LUIS Room: [address] IN [facility]#: [id number] Admission: 11/01/19 Attend Phys: Lucius Erickson Discharge: Date of : 47 Report #: [id number] LABORATORY DATA: Hemoglobin on presentation 4.8, now 7.1, hematocrit 21.4, platelet count 264, WBC count 5.9. INR 1. Sodium 136, potassium 4.2, chloride 104, bicarbonate 26, BUN 12, creatinine 0.9, total bilirubin 0.9, AST 13, ALT 15, alkaline phosphatase 69. Chest x-ray shows mild pulmonary vascular congestion. 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 We would recommend a push enteroscopy with a pediatric colonoscope. Further recommendations can be based on results of this test. By: 1433 [id number] Smith MD /nt
[~2019-11-01 08:55] MED LIST changes: +METFORMIN HCL500 MG PO
[2019-11-01 09:02] VITALS: BP 98/32
[2019-11-01] MEDS ORDERED: OMEPRAZOLE 20 M20 M1 PO (09:17)
[2019-11-01 09:40] LABS: MCH 23.2 pg (26.0-34.0); MPV 7.5 fl. (7.2-11.1); NUCLEATED RBCS 0 /100WBC; WBC 4.2 thou/uL (4.0-11.0)
[2019-11-01 09:41] LABS: PLATELET COUNT* 330 thou/uL (150-400); RBC 2.05 mil/uL (4.50-6.00); RDW-CV 23.1 % (10.5-14.5)
[2019-11-01 09:43] LABS: CALCIUM 8.1 mg/dL (8.5-10.1); CREATININE 0.9 mg/dL (0.6-1.3); POTASSIUM 3.9 mmol/L (3.5-5.1)
[2019-11-01 09:44] LABS: APTT 24.4 Seconds (25.0-31.3); PROTIME 10.6 Seconds (9.20-11.50)
[2019-11-01 09:49] LABS: HEMATOCRIT 15.4 % (42.0-52.0); HEMOGLOBIN 4.8 gm/dL (14.0-18.0)
[2019-11-01 09:54] LABS: ALBUMIN 3.6 g/dL (3.4-5.0); TOTAL BILIRUBIN 0.3 mg/dL (<0.1-1.0); TOTAL PROTEIN 7.6 g/dL (6.4-8.2)
[2019-11-01 10:43] LABS: ABSOLUTE EOSINOPHILS 0.2 thou/uL (0.0-0.7); ABSOLUTE LYMPHOCYTES 1.3 thou/uL (0.8-5.3); ABSOLUTE MONOCYTES 0.1 thou/uL (0.0-1.2); ABSOLUTE NEUTROPHILS 2.6 thou/uL (1.6-8.1); ANISOCYTOSIS 3+; HYPOCHROMASIA 3+; MICROCYTES 2+; OVALOCYTES 3+; PLATELET ESTIMATE ADEQUATE
[2019-11-01 14:15] VITALS: BP 126/52
[2019-11-01 16:06] VITALS: BP 115/64
[2019-11-01 16:21] LABS: HEMATOCRIT 16.6 % (42.0-52.0); HEMOGLOBIN 5.3 gm/dL (14.0-18.0)
--- NOTE | 2019-11-01 17:01 | EKG ---
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
[2019-11-01 18:07] VITALS: BP 116/55; BP 121/54; BP 122/54; BP 129/62; BP 96/41
--- NOTE | 2019-11-01 20:14 | NUR ---
REC PATIENT FROM ED AROUND 1440, PATIENT VSS, CRITICAL HGB LEVEL, PRBC TRANSFUSING WHEN BROUGHT TO UNIT. REC ANOTHER CRITICAL HGB LEVEL OF 5.3, ORDERED AND TRANSFUSED ANOTHER UNIT OF PRBCS. DR WILLINGHAM VERBALLY ORDERED TO CONTINUE TRANSFUSING UNTIL HGB 7.0 REACHED. AxOX4, NSR ON TELE, ROOM AIR, NPO AT MIDNIGHT PER GI. ADMISSION COMPLETED, HOURLY ROUNDING PERFORMED, POSSESSIONS AND CALL LIGHT WITHIN REACH.
[2019-11-01 22:24] LABS: HEMATOCRIT 18.9 % (42.0-52.0); HEMOGLOBIN 6.1 gm/dL (14.0-18.0)
[2019-11-01 23:02] VITALS: BP 108/54; BP 115/54; BP 122/51; BP 123/60; BP 127/55
[2019-11-02 03:14] VITALS: BP 108/50; BP 110/58; BP 114/62; BP 99/48
--- NOTE | 2019-11-02 04:51 | NUR ---
PT SLEPT ON AND OFF THIS SHIFT. ASSESSMENT DOCUMENTED. MEDS GIVEN PER E-SEP. IVS PATENT. PROTONIX DRIP INFUSING, BLOOD TRANSFUSION IN PROGRESS. PT REMAINED NPO AT MIDNIGHT. WILL CONTINUE WITH PLAN OF CARE.
[2019-11-02 07:14] LABS: ABSOLUTE EOSINOPHILS 0.2 thou/uL (0.0-0.7); ABSOLUTE LYMPHOCYTES 1.4 thou/uL (0.8-5.3); ABSOLUTE MONOCYTES 0.8 thou/uL (0.0-1.2); ABSOLUTE NEUTROPHILS 3.5 thou/uL (1.6-8.1); BASOPHILS 0.8 %; HEMATOCRIT 21.4 % (42.0-52.0); HEMOGLOBIN 7.1 gm/dL (14.0-18.0); LYMPHOCYTES 23.8 %; MCH 25.9 pg (26.0-34.0); MCHC 33.4 g/dL (28.0-37.0); MCV 77.6 fL (80.0-100.0); MONOCYTES 13.6 %; MPV 7.3 fl. (7.2-11.1); NUCLEATED RBCS 0 /100WBC; PLATELET COUNT* 264 thou/uL (150-400); POLYS 58.8 %; RBC 2.76 mil/uL (4.50-6.00); RDW-CV 22.3 % (10.5-14.5); WBC 5.9 thou/uL (4.0-11.0)
[2019-11-02 07:34] LABS: ALBUMIN 3.1 g/dL (3.4-5.0); CALCIUM 7.9 mg/dL (8.5-10.1); CREATININE 0.9 mg/dL (0.6-1.3); POTASSIUM 4.2 mmol/L (3.5-5.1); TOTAL BILIRUBIN 0.9 mg/dL (<0.1-1.0); TOTAL PROTEIN 6.6 g/dL (6.4-8.2)
[2019-11-02 08:00] VITALS: BP 123/59
[2019-11-02 11:33] VITALS: BP 139/53
--- NOTE | 2019-11-02 13:01 | NUR ---
ASSUMED PT CARE AT 0800, AOX4, UP SBA, O2 SAT 90'S RA. TRACING SR ON TELE. PT DENIES PAIN. PT NPO. PT HAVING EGD. VSS, AM ASSESSMENT CHARTED, HOURLY ROUINDING, WILL CONTINUE TO MONITOR.
--- NOTE | 2019-11-02 15:33 | NUR ---
Pt is A&O. Resides at home with his . Normally independent. No DME. No hx of or SNF. CM initiated transfer to [facility] for a double balloon enteroscopy. CM updated Pt's . Faxed facesheet and copy of insurance cards to [facility] [phone]. CM requested that radiology upload images to the cloud. CM provided [facility] with 2E nurse's station phone number. Following.
[2019-11-02 16:03] VITALS: BP 122/66
[2019-11-02 16:39] LABS: HEMOGLOBIN 7.6 gm/dL (14.0-18.0); MCH 25.8 pg (26.0-34.0); MCV 78.2 fL (80.0-100.0); MPV 7.6 fl. (7.2-11.1); RBC 2.94 mil/uL (4.50-6.00); RDW-CV 22.2 % (10.5-14.5)
[2019-11-02 19:45] VITALS: BP 124/58
[2019-11-02 20:20] VITALS: BP 124/58
--- NOTE | 2019-11-02 20:25 | NUR ---
REPORT GIVEN TO AMRIK KENYON AT [facility]. TRANSFERRED BY AMBULANCE WITH [facility]. TELEMETRY UNIT REMOVED.
== END 2019-11-02 20:25 | disposition short-term general hospital (02) | DRG 378 ==
LOC: M.ERS 08:55 → M.TBA-ER 09:54 → M.2W 09:54
PROVIDERS: Emergency Medicine Emergency Medical Services; Internal Medicine; Internal Medicine Gastroenterology; ADMIT Internal Medicine
PROC: 5A09357 Assistance with Respiratory Ventilation, Less than 24 Consecutive Hours, Continuous Positive Airway Pressure (ICD-10-PCS; principal; 2019-11-01)
PROC: 0DJ08ZZ Inspection of Upper Intestinal Tract, Via Natural or Artificial Opening Endoscopic (ICD-10-PCS; principal; 2019-11-01)
PROC: 30233N1 Transfusion of Nonautologous Red Blood Cells into Peripheral Vein, Percutaneous Approach (ICD-10-PCS; principal; 2019-11-01)
PROC: 5A09357 Assistance with Respiratory Ventilation, Less than 24 Consecutive Hours, Continuous Positive Airway Pressure (ICD-10-PCS; 2019-11-02)
DX: K92.2 Gastrointestinal hemorrhage, unspecified (principal); D62 Acute posthemorrhagic anemia; I10 Essential (primary) hypertension; F32.9 Major depressive disorder, single episode, unspecified; E78.5 Hyperlipidemia, unspecified; I25.10 Atherosclerotic heart disease of native coronary artery without angina pectoris; E11.9 Type 2 diabetes mellitus without complications; Z95.5 Presence of coronary angioplasty implant and graft; Z79.82 Long term (current) use of aspirin; Z79.84 Long term (current) use of oral hypoglycemic drugs; Z79.899 Other long term (current) drug therapy

== ENCOUNTER → 2021-06-16 | Outpatient (CLI) | payer MEDICARE, BC ==
[~2021-06-16] MED LIST changes: +OMEPRAZOLE 20 M20 M1 PO
--- NOTE | 2021-06-16 17:13 | CARDNUC ---
[place] [address] CARDIAC NUCLEAR IMAGING REPORT Name: ANDRES CHAMPION LUIS Room: [employer]#: [id number] Admission: 06/16/21 Attend Phys: Wyatt Jesus, Discharge: Date of : 47 Date of Service: 06/16/21 1713 Report #: [id number] THIS REPORT FOR: cc: Fidelina Watson Maggie M. DO Liston, Michael J. MD [facility] ~ APPROVED REPORT Study performed: 06/16/2021 11:00:41 Exam: Nuclear Stress Test Indication: routine Patient Location: Out-Patient Stress Nurse: Maria Isabel Aguirre RN Ht: 5 ft 9 in Wt: 229 lbs BSA: 2.19 m2 BMI: 33.81 Medical History Medical History: Carotid artery disease, Diabetes, HTN, Hyperlipidemia,PAT,, Valvular heart disease Medications: asa-81, atorvastatin, ntg, sotalolo, terazosin Allergies: No known drug allergies Cardiac Risk Factors: Age, DM, FHX of CAD, HTN, Hyperlipidemia Previous Cardiac Procedures: PCI Exercise History: Indeterminate Stress Test Details Stress Test: Pharmacologic stress testing performed using 0.4 mg of regadenoson per 5 mL given IV over 10 seconds. Reason for pharmacologic stress test: patient on Sotalol. HR Resting HR: 57 bpm Max Heart Rate (APMHR): 145 bpm Max HR Achieved: 79 bpm Target HR (85% APMHR): 123 bpm % of APMHR: 54 Recovery HR: 66 bpm BP Resting BP: 109/66 mmHg Max BP: 72/58 [place] [address] CARDIAC NUCLEAR IMAGING REPORT Name: ANDRES CHAMPION LUIS Room: [employer]#: [id number] Admission: 06/16/21 Attend Phys: Wyatt Jesus, Discharge: Date of : 47 Date of Service: 06/16/21 1713 Report #: [id number] ECG Resting ECG: Sinus Rhythm Stress ECG: Sinus Rhythm ST Change: None Arrhythmia: None Recovery ECG: Sinus Rhythm Recovery ST Change: None Recovery Arrhythmia: None Clinical Reason for Termination: Completed protocol Patient had no significant cardiac symptoms related to Lexiscan infusion. Nurse Comments became hypotenisive after inecting lexascan, pt placed in supine position and BP monitored. also co of stomach pain. 60 mg caffeine was given ivp after 4 minutes. Pt had complete resolution of symptoms Stress ECG Conclusion The baseline twelve-lead EKG shows sinus rhythm without significant ST segment or T wave abnormality. EKGs obtained during and post Lexiscan infusion show sinus rhythm with no significant ST segment changes when compared to baseline. There were no stress-induced arrhythmias. NM EXAM: Myocardial Perfusion REST/STRESS Study Quality Study: Good Artifact: No artifact Study Data Post stress, the left ventricular ejection was 64%.. Perfusion Perfusion images obtained post Lexiscan stress showed uniform uptake of the radioisotope throughout the myocardium. There were no defects to suggest infarct or ischemia. Wall Motion Normal left ventricular wall [place] [address] CARDIAC NUCLEAR IMAGING REPORT Name: ANDRES CHAMPION GENE Room: [employer]#: [id number] Admission: 06/16/21 Attend Phys: Wyatt Jesus, Discharge: Date of : 47 Date of Service: 06/16/211712 Report #: [id number] ECG Findings: negative for ischemia Clinical Findings: negative for ischemia Nuclear Findings: negative for ischemia Exercise Capacity: not assessed Left Ventricular Function: normal Risk Study: low Perfusion images show no defect to suggest infarct or ischemia. Left ventricular systolic function appears normal on gated studies. This is a low risk study. <Conclusion> The baseline twelve-lead EKG shows sinus rhythm without significant ST segment or T wave abnormality. EKGs obtained during and post Lexiscan infusion show sinus rhythm with no significant ST segment changes when compared to baseline. There were no stress-induced arrhythmias. <ELECTRONICALLY SIGNED> By: Wyatt Jesus MD, [facility] 06/16/211712 12 1713 Wyatt Jesus MD, FACC /INF
== END ==
LOC: M.NUC 05-29 12:28
PROVIDERS: ATTEND Internal Medicine Cardiovascular Disease
DX: I25.10 Atherosclerotic heart disease of native coronary artery without angina pectoris (principal)

== ENCOUNTER → 2021-07-23 | Outpatient (CLI) | payer MEDICARE, BC | LOC: M.LAB 10:10 | PROVIDERS: ATTEND Internal Medicine Gastroenterology | DX: Z01.812 Encounter for preprocedural laboratory examination (principal); Z20.822 Contact with and (suspected) exposure to COVID-19 ==

== ENCOUNTER → 2021-08-29 | Outpatient (CLI) | payer MEDICARE, BC ==
[2021-08-29 12:30] LABS: ABSOLUTE EOSINOPHILS 0.3 thou/uL (0.0-0.7); ABSOLUTE LYMPHOCYTES 1.3 thou/uL (0.8-5.3); ABSOLUTE MONOCYTES 0.7 thou/uL (0.0-1.2); ABSOLUTE NEUTROPHILS 2.1 thou/uL (1.6-8.1); EOSINOPHILS 5.7 %; HEMATOCRIT 28.2 % (42.0-52.0); HEMOGLOBIN 9.2 gm/dL (14.0-18.0); MCH 29.2 pg (26.0-34.0); MCHC 32.5 g/dL (28.0-37.0); MCV 90.1 fL (80.0-100.0); MPV 6.8 fl. (7.2-11.1); NUCLEATED RBCS 0 /100WBC; PLATELET COUNT* 270 thou/uL (150-400); POLYS 48.3 %; RBC 3.13 mil/uL (4.50-6.00); RDW-CV 15.4 % (10.5-14.5); WBC 4.4 thou/uL (4.0-11.0)
[2021-08-29 12:44] LABS: ALBUMIN 3.6 g/dL (3.4-5.0); CALCIUM 9.1 mg/dL (8.5-10.1); POTASSIUM 4.4 mmol/L (3.5-5.1); TOTAL BILIRUBIN 0.3 mg/dL (<0.1-1.0); TOTAL PROTEIN 7.7 g/dL (6.4-8.2)
[2021-08-29 13:16] LABS: % SATURATION 8 % (20-39); IRON 29 ug/dL (50-175)
[2021-08-29 13:50] LABS: ESR (SEDRATE) 65 mm/hr (0-20)
== END ==
LOC: M.LAB 12:08
PROVIDERS: ATTEND Internal Medicine Gastroenterology
DX: D50.9 Iron deficiency anemia, unspecified (principal)